=== PATIENT | female | born 1970 | race Caucasian/White ===

== ENCOUNTER 2021-02-07 09:32 | Outpatient (CLI) | payer OTHER, SELFPAY ==
[2021-02-07 10:12] LABS: CRP 0.7 mg/dL (<1.0); Uric Acid 4.7 mg/dL (2.5-7.5)
[2021-02-07 10:13] LABS: Rheumatoid Factor < 8.6 IU/ML (<12)
[2021-02-07 10:50] LABS: Erythrocyte Sedimentation Rate 9 mm/hr (0-20)
== END 2021-02-07 09:33 | disposition home or self-care (01) ==
PROVIDERS: Visit Provider Podiatrist Foot & Ankle Surgery
DX: M15.9 Polyosteoarthritis, unspecified (principal)
CPT/HCPCS: 36415; 84550; 85652; 86038; 86140; 86430

== ENCOUNTER → 2021-02-27 15:21 | Outpatient (CLI) | payer OTHER, SELFPAY ==
--- NOTE | ~2021-02-27 | MR_ITS ---
EXAMINATION: MR foot LT wo/w con DATE: 02/27/2021 17:35 INDICATION: Soft tissue mass at the first intermetatarsal space at the left foot TECHNIQUE: Magnetic resonance imaging (MRI) of the left fore/mid foot was performed without and with 12 mL Multihance intravenous contrast. Sequences included axial, sagittal and coronal T1-weighted FSE , axial and coronal T2-weighted FS FSE, sagittal fluid sensitive FSE STIR, axial [id number] FS FSE an d postcontrast axial, sagittal and coronal T1-weighted FS FSE. COMPARISON: None FINDINGS: Bone alignment is normal. No fracture. Mild to moderate osteoarthritis at the first metatarsophalange al joint with mild subarticular edema and small marginal osteophytes at the lateral side of the joint space. Synovitis and small joint effusion at the first metatarsophalangeal joint. Minimal to mild os teoarthritis at a few of the tarsal metatarsal and interphalangeal joints.. No cortical erosions or p athologic marrow replacing process. There is a 10 x 3 x 3 mm peripherally enhancing centrally fluid a ttenuation cystic fluid collection in the dorsal subcutaneous tissues between the bases of the first and second proximal phalanges which could represent either a ganglion cyst or intermetatarsal bursa w ith bursitis no solid enhancing nodules or masses. Specifically no Le's neuroma. The flexor and e xtensor tendons are normal. The Lisfranc ligament complex and collateral ligament complex at the meta tarsophalangeal and interphalangeal joints are normal. Intrinsic musculature of the foot is unremarka ble. IMPRESSION: 1. 10 x 3 x 3 mm cystic fluid collection at the first intermetatarsal space which could represent eit her a small ganglion cyst or intermetatarsal bursa with bursitis. 2. 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 Reviewed, dictated and finalized at location A. IMPRESSION: 1. 10 x 3 x 3 mm cystic fluid collection at the first intermetatarsal space whi ch could represent either a small ganglion cyst or intermetatarsal bursa with b ursitis. 2. Mild to moderate osteoarthritis at the first metatarsophalangeal joint with associated synovitis and small joint effusion.
[2021-02-27 16:22] LABS: Estimated Glomerular Filt Rate > 60
== END ==
PROVIDERS: Visit Provider Podiatrist Foot & Ankle Surgery
DX: M19.072 Primary osteoarthritis, left ankle and foot (principal)
CPT/HCPCS: 73720; A9577

== ENCOUNTER → 2021-03-01 14:36 | Outpatient (CLI) | payer OTHER, SELFPAY ==
--- NOTE | ~2021-03-01 | XR_ITS ---
XR hand RT min 3V, XR wrist RT w scaphoid 03/01/2021 15:42 Indication: Polyarthritis Procedure: 3 views right hand and 5 views right hand Comparison: No prior studies for comparison Findings: No fracture, subluxation or dislocation. No joint space narrowing. No erosive changes. No s oft tissue abnormality. No foreign bodies. Impression: 1: No significant bone or joint abnormality. Reviewed, dictated and finalized at location B. Impression: 1: No significant bone or joint abnormality. Impression: 1: No significant bone or joint abnormality.
--- NOTE | ~2021-03-01 | XR_ITS ---
XR ankle RT min 3V 03/01/2021 15:42 INDICATION: Polyarthritis PROCEDURE: 4 views right ankle COMPARISON: No prior studies for comparison. FINDINGS: Fracture, dislocation or subluxation is not identified. Ankle mortise intact. The soft tiss ues appear within normal limits. No foreign bodies are identified. IMPRESSION: 1: NO ACUTE BONE OR JOINT ABNORMALITY IDENTIFIED. Reviewed, dictated and finalized at location B.
--- NOTE | ~2021-03-01 | XR_ITS ---
XR hip BI wo pelvis 03/01/2021 15:42 Indication: Polyarthritis. Procedure: 2 views of each hip Comparison: No prior studies for comparison. Findings: Pelvic rings are intact. Sacral foramen are symmetric. No fracture, subluxation or dislocat ion. No joint space narrowing. No erosive changes. Impression: 1: No significant bone or joint abnormality. Reviewed, dictated and finalized at location B. Impression: 1: No significant bone or joint abnormality.
== END ==
PROVIDERS: Visit Provider Clinical Nurse Specialist
DX: M13.0 Polyarthritis, unspecified (principal)
CPT/HCPCS: 73110; 73130; 73521; 73610

== ENCOUNTER 2021-03-16 01:23 | Day surgery (SDC) | payer OTHER, SELFPAY ==
[2021-03-13 09:00] VITALS: BMI 20.7
--- NOTE | 2021-03-16 07:12 | WPDHPUPDATE1 ---
History and Physical Update Update Date/Time: 03/16/21 07:12 History and Physical has been reviewed, including an updated exam of the patient. There are NO changes in the patient's condition. Risks, benefits, and alternatives have been discussed and questions answered. Patient agrees to proceed with procedure.
[2021-03-16 08:29] VITALS: BP 105/64; PULSE 69; RESP 16; TEMP 37.2; O2SAT 100
[2021-03-16] MEDS: LACTATED RINGERS 1,000 ML 30 ML IV CONT (08:47)
--- NOTE | 2021-03-16 09:03 | WPDANESEPPF ---
Anes - Initial Pre Proc Eval Procedure: Operation Date: 03/16/21 10:00 Proposed Procedures p Excision Of Ganglion Cyst, Left Foot - Tj Rashid JR, MD Date/Time: 03/16/21 09:03 Surgeon: Tj Rashid JR, MD Pre Op Diagnosis: Ganglion cyst, left foot Patient Data Age: 50 Gender: F Height: 1.73 m Weight: 65 kg Last Vital Signs Temp 98.9 F 03/16/21 08:29 Pulse 69 03/16/21 08:29 Resp 16 03/16/21 08:29 BP 105/64 03/16/21 08:29 Pulse Ox 100 03/16/21 08:29 Allergies Allergy/AdvReac Type Severity Reaction Status Date / Time No Known Allergies Allergy Verified 03/13/21 08:41 Home Medications Medication Instructions Recorded Confirmed Type cholecalciferol (vitamin D3) 10 10 mcg PO DAILY 03/01/21 03/16/21 History mcg (400 unit) capsule citalopram 10 mg tablet 10 mg PO DAILY 03/01/21 03/16/21 History mecobalamin (vitamin B12) 5,000 5,000 mcg PO DAILY 03/01/21 03/16/21 History mcg disintegrating tablet omega-3 fatty acids 1,000 mg 1,000 mg PO DAILY 03/01/21 03/16/21 History capsule trazodone 50 mg PO HS 03/13/21 03/16/21 History Patient hx anesthesia problems: none Family hx anesthesia problems: none PMFSH Past Medical History Medical History (Updated 03/01/21 @ 14:42 by HARRY German) Anxiety FH: cholecystectomy Family History Family History (Updated 03/01/21 @ 13:30 by Ivonne Ramirez CMA) Mother Heart disease Grandparent Cancer Depression Anxiety Heart disease Cerebrovascular accident Social History Social History (Updated 03/01/21 @ 13:45 by Ivonne Ramirez CMA) Smoking packs per day: 0.5 Smoking cigarettes per day: 10.0 Years smoked: 10 Smoking pack-years: 5.00 Smoking status: Former smoker Tobacco type: cigarettes Second hand tobacco smoke exposure: No Smoking end date: 09/08/99 Alcohol intake: current Drinks per week: 2 Substance use: never Living arrangements: with family Spiritual care concerns: No Anes - Eval Final PreProcedure Day of Procedure 03/16/21 09:03 Patient weight: normal Heart: regular rate and rhythm Lungs: clear to auscultation Airway: Mallampati scale class II Neurological: alert and oriented Last oral intake: >/= 8 hours ASA classification: II Emergent: no Anesthetic plan: proceed Anesthesia type and monitoring: general GIVS and standard monitoring Informed Consent: The patient's anesthetic plan and its attendant risks and benefits were discussed with the patient/family/POA. Questions were solicited and answers provided to the satisfaction of the patient/family/POA.
[2021-03-16] MEDS: ceFAZolin 2 GM/D5W 50 ML 2 GM/50 ML BAG IVPB (10:13)
[2021-03-16] MEDS: BUPIVACAINE HCL 0.5% PF 30 ML VIAL INFILTRATE (10:19)
--- NOTE | 2021-03-16 10:54 | P.OP_ITS ---
Procedure Note - Detailed Date of Procedure 03/16/21 Pre-op Diagnosis Ganglion cyst, left foot Post-op Diagnosis same Procedure Performed Excision of ganglion cyst left foot Surgeon Tj Rashid JR, DPM Anesthesia MAC and local Description of Procedure PROCEDURE IN DETAIL: Under mild sedation, the patient was brought into the operating room, placed on the operating table in the supine position. A pneumatic ankle tourniquet was placed about the patient's ankle. Following IV anesthesia, a local anesthetic block was obtained about the foot and ankle utilizing 20 cc of a 1:1 of 2% Lidocaine plain and 0.5% Marcaine plain. The foot was then scrubbed, prepped, and draped in the usual aseptic manner. An Esmarch bandage was then used to exsanguinate the patient's foot and the pneumatic ankle tourniquet was then inflated. Surgery began in the following manner: Attention was directed to the first i ntermetatarsal space of the left foot where an ancision was made along the central metatarsal extending to the base of the proximal phalanx of the hallux and 2nd digit. The incision was continued deep down through the subcutaneous tissues using sharp and blunt dissection. All bleeders were cauterized as necessary. At this point, the dissection was continued down to the subcutaneus fay layer where the cystic well encapsulated mass was visualized, the mass was extruding viscous clear jelly like material. The stalk was noted to be arising from the medial capsule of the first metatarsal phalangeal joint. The entire mass was excised along with the tethered lipomatous tissue and sent for gross and histopathology. I used electrocautery to cauterize the stalk at the medial capsule of the first metatarsal phalangeal joint. No remnants of the cyst were noted, I did protect the neurovascular structures. The operative site was flushed with copious amount of sterile saline. Finally, the subcutaneous structures were reapproximated with 4-0 Vicryl. Next, the skin was reapproximated and coapted utilizing 4-0 Monocryl in running subcuticular suture fashion technique. Upon completion of the procedure, the incision was dressed with Steri-Strips, Adaptic, 4x4s, Kerlix, and Coban. The pneumatic ankle tourniquet was then deflated and a prompt hyperemic response was noted to all digits of the foot. A surgical shoe was then applied to the affected lower extremity. It is important to note that Dr. Rashid was present throughout the procedure. The patient did very well with the procedure and the anesthesia. The patient was transferred to the recovery room with vital signs stable and vascular status intact to all toes of the foot. Following a period of postoperative monitoring, the patient will be discharged home on the following written and oral postoperative instructions: 1. Keep the dressing clean, dry, and intact. 2. The patient to be protected weight bearing with a surgical shoe. 3. The patient should ice and elevate the affected foot when at rest. 4. The patient should contact Dr. Rashid for all postop care and if any problems should arise. The patient will follow up in one week for the post op visit. 5. Prescriptions were written for Percocet 5/325, dispensed 40 to be taken 1 p.o. q.4-6 hours as needed for severe pain. Furthermore, the patient should take Aspirin 325 once daily for two weeks to prevent DVT.
[2021-03-16 10:55] VITALS: BP 92/50; PULSE 72; RESP 12; O2SAT 98
[2021-03-16 11:20] VITALS: BP 101/58; PULSE 59; RESP 14
[2021-03-16 11:55] VITALS: BP 120/72; PULSE 56; RESP 14
--- NOTE | 2021-03-16 12:13 | SUR.PHASEII ---
PT AWAKE AND ALERT. DENIES PAIN OR NAUSEA. READY TO GO HOME. MEETS DISCHARGE CRITERIA.
[2021-03-16 12:20] VITALS: BP 107/55; PULSE 60; RESP 16
== END 2021-03-16 12:30 | disposition home or self-care (01) ==
PROVIDERS: Visit Provider Podiatrist Foot & Ankle Surgery
PROC: (CPT 28090; principal; 2021-03-16 10:00)
DX: M67.472 Ganglion, left ankle and foot (principal); F41.9 Anxiety disorder, unspecified; Z87.891 Personal history of nicotine dependence; K91.5 Postcholecystectomy syndrome
CPT/HCPCS: 28090; 88304; J0690; J2250; J2405; J2704; J3010; J7120

== ENCOUNTER 2022-08-22 10:10 | Outpatient (CLI) | payer BC, SELFPAY ==
[2022-08-22 20:37] LABS: Kit Draw Collected
== END 2022-08-22 10:11 | disposition home or self-care (01) ==
LOC: ANHGOSHLAB 10:11
PROVIDERS: PCP Internal Medicine; Visit Provider Clinical Nurse Specialist
DX: R23.3 Spontaneous ecchymoses (principal); F41.9 Anxiety disorder, unspecified
CPT/HCPCS: 36415

== ENCOUNTER 2022-09-27 01:45 | Day surgery (SDC) | payer BC, SELFPAY ==
[2022-09-06 10:14] VITALS: BMI 20.4
--- NOTE | 2022-09-13 08:43 | PC.NURSE ---
Patient arrived to GI lab this morning 09/13/22 stating she was here for her procedure. Patient had been canceled by the office due to lack of pre approval for insurance per Kat. Patient states she did not get any phone calls from the office. I called the office and their notes state they left her a voicemail at 1302 on 09/12/22. Patient denies any voicemail being left. Instructed to follow up with office for pre approval and to be put back on the schedule.
[2022-09-27 07:17] VITALS: BP 97/65; PULSE 73; RESP 18; TEMP 36.4; O2SAT 100; BMI 21.1
[2022-09-27] MEDS: LACTATED RINGERS 1,000 ML 150 ML IV CONT (07:27)
--- NOTE | 2022-09-27 07:46 | PM.HPGS ---
History of Present Illness History of Present Illness Consent: Risks, benefits, and alternatives have been discussed and questions answered. Patient agrees to proceed with procedure. Chief complaint: GERD Narrative: Esthela Quiroz is a 52 year old female Presents for EGD. Patient has a longstanding history of acid reflux disease. Currently maintained on omeprazole 20mg p.o. daily. Typically this is well controlled however several weeks ago had an experience with substernal epigastric pain lasted all night was rather intense. This has not recurred. Patient denies any dysphagia bleeding or weight loss. Patient referred today for EGD because of chronic GE reflux disease. Review of Systems Review of Systems: Review of systems noncontributory. [facility] Past Medical History Medical History (Updated 08/22/22 @ 12:58 by HARRY German) Anxiety Cough FH: cholecystectomy Left foot pain Polyarticular arthritis Right hip pain Screening for endocrine disorder Screening for lipid disorders Vitamin D deficiency Wrist pain Family History Family History Mother Heart disease Grandparent Cancer Depression Anxiety Heart disease Cerebrovascular accident Social History Social History (Updated 08/22/22 @ 09:21 by Cindy Lopez MA) Smoking packs per day: 0.25 Smoking cigarettes per day: 5.0 Years smoked: 15 Smoking pack-years: 3.75 Smoking status: Former smoker Tobacco type: cigarettes Second hand tobacco smoke exposure: No Smoking end date: 09/08/99 Alcohol intake: current Drinks per week: 2 Substance use: never Substance use type: does not use Lack of Transportation: No Lack of Food: Never True Current Housing: I Have Housing Concerned About Future Housing: No Difficulty Paying Gas/Electric Bills: No Difficulty Paying for Meds: No Currently Unemployed: No Education: Bachelor's Degree Difficulty w/ Childcare or Family Care: No Living arrangements: with family Spiritual care concerns: No Meds Home Medications and Allergies Home Medications Medication Instructions Recorded Confirmed Type omega-3 fatty acids 1,000 mg 1,000 mg PO DAILY 03/01/21 09/18/22 History capsule (Fish Oil Concentrate) citalopram 10 mg tablet See Rx Instructions .Route 06/27/22 09/18/22 Rx .COMPLEX #90 tabs omeprazole 20 mg capsule,delayed See Rx Instructions .Route 06/27/22 09/18/22 Rx release .COMPLEX #90 caps alprazolam 0.25 mg tablet (Xanax) 0.25 mg PO DAILY PRN anxiety #20 08/20/22 09/18/22 Rx tabs fluticasone propionate 50 See Rx Instructions .Route 09/06/22 09/18/22 History mcg/actuation nasal .COMPLEX PRN Allergy Symptoms spray,suspension trazodone 100 mg tablet 100 mg PO QHS PRN Insomnia 09/06/22 09/18/22 History Allergies Allergy/AdvReac Type Severity Reaction Status Date / Time No Known Allergies Allergy Verified 09/18/22 08:20 Vital Signs Vital Signs - 24 hr 09/27/22 07:17 Temperature 97.5 F L Pulse Rate 73 Respiratory Rate 18 Blood Pressure 97/65 L Pulse Oximetry 100 Oxygen Delivery Room Air Exam Narrative: Physical exam reveals patient to be alert. Vital signs stable. HEENT exam is unremarkable. Patient is anicteric. Lungs are clear to auscultation and percussion. Heart is without murmur or extra sounds. Abdomen bowel sounds are present soft nontender with no organomegaly. Digital external rectal exam deferred at this time. Assessment and Plan Assessment and plan (1) GERD (gastroesophageal reflux disease): Qualifiers: Esophagitis presence: without esophagitis Qualified Code(s): K21.9 - Gastro-esophageal reflux disease without esophagitis Code(s): K21.9 - Gastro-esophageal reflux disease without esophagitis Status: Acute Assessment and Plan: Patient with chronic GE reflux disease. Currently maintained on omeprazole
--- NOTE | 2022-09-27 07:55 | WPDANESEPPF ---
Anes - Initial Pre Proc Eval Procedure: Operation Date: 09/27/22 08:00 Proposed Procedures p Esophagogastroduodenoscopy - Julio Hunter MD Date/Time: 09/27/22 07:55 Surgeon: Julio Hunter MD Pre Op Diagnosis: GERD Patient Data Age: 52 Gender: F Height: 1.73 m Weight: 63.1 kg Last Vital Signs Temp 97.5 F L 09/27/22 07:17 Pulse 73 09/27/22 07:17 Resp 18 09/27/22 07:17 BP 97/65 L 09/27/22 07:17 Pulse Ox 100 09/27/22 07:17 O2 Del Method Room Air 09/27/22 07:17 Allergies Allergy/AdvReac Type Severity Reaction Status Date / Time No Known Allergies Allergy Verified 09/18/22 08:20 Home Medications Medication Instructions Recorded Confirmed Type omega-3 fatty acids 1,000 mg 1,000 mg PO DAILY 03/01/21 09/18/22 History capsule (Fish Oil Concentrate) citalopram 10 mg tablet See Rx Instructions .Route 06/27/22 09/18/22 Rx .COMPLEX #90 tabs omeprazole 20 mg capsule,delayed See Rx Instructions .Route 06/27/22 09/18/22 Rx release .COMPLEX #90 caps alprazolam 0.25 mg tablet (Xanax) 0.25 mg PO DAILY PRN anxiety #20 08/20/22 09/18/22 Rx tabs fluticasone propionate 50 See Rx Instructions .Route 09/06/22 09/18/22 History mcg/actuation nasal .COMPLEX PRN Allergy Symptoms spray,suspension trazodone 100 mg tablet 100 mg PO QHS PRN Insomnia 09/06/22 09/18/22 History Patient hx anesthesia problems: none Family hx anesthesia problems: none Results Review: All pre-operative results and documents have been reviewed as part of the pre-operative evaluation. [facility] Past Medical History Medical History (Updated 08/22/22 @ 12:58 by HARRY German) Anxiety Cough FH: cholecystectomy Left foot pain Polyarticular arthritis Right hip pain Screening for endocrine disorder Screening for lipid disorders Vitamin D deficiency Wrist pain Family History Family History Mother Heart disease Grandparent Cancer Depression Anxiety Heart disease Cerebrovascular accident Social History Social History (Updated 08/22/22 @ 09:21 by Cindy Lopez MA) Smoking packs per day: 0.25 Smoking cigarettes per day: 5.0 Years smoked: 15 Smoking pack-years: 3.75 Smoking status: Former smoker Tobacco type: cigarettes Second hand tobacco smoke exposure: No Smoking end date: 09/08/99 Alcohol intake: current Drinks per week: 2 Substance use: never Substance use type: does not use Lack of Transportation: No Lack of Food: Never True Current Housing: I Have Housing Concerned About Future Housing: No Difficulty Paying Gas/Electric Bills: No Difficulty Paying for Meds: No Currently Unemployed: No Education: Bachelor's Degree Difficulty w/ Childcare or Family Care: No Living arrangements: with family Spiritual care concerns: No Anes - Eval Final PreProcedure Day of Procedure 09/27/22 07:55 Patient weight: normal Heart: regular rate and rhythm Lungs: clear to auscultation Airway: Mallampati scale class II Neurological: alert and oriented Last oral intake: >/= 8 hours ASA classification: II Emergent: no Anesthetic plan: proceed Anesthesia type and monitoring: general GIVS and standard monitoring Results Review: All pre-operative results and documents have been reviewed as part of the pre-operative evaluation. Informed Consent: The patient's anesthetic plan and its attendant risks and benefits were discussed with the patient/family/POA. Questions were solicited and answers provided to the satisfaction of the patient/family/POA.
[2022-09-27 08:06] VITALS: BP 106/64; PULSE 78; RESP 20; O2SAT 98
[2022-09-27 08:16] VITALS: BP 102/60; PULSE 77; RESP 19; O2SAT 99
[2022-09-27 08:26] VITALS: BP 107/71; PULSE 72; RESP 14; O2SAT 100
== END 2022-09-27 08:29 | disposition home or self-care (01) ==
PROVIDERS: PCP Internal Medicine; Visit Provider Internal Medicine Gastroenterology
PROC: 0DJ08ZZ Inspection of Upper Intestinal Tract, Via Natural or Artificial Opening Endoscopic (ICD-10-PCS; CPT 43235; principal; 2022-09-27 08:00)
DX: K21.9 Gastro-esophageal reflux disease without esophagitis (principal); F41.9 Anxiety disorder, unspecified; Z87.891 Personal history of nicotine dependence
CPT/HCPCS: 43239; 87081; J2704; J7120

== ENCOUNTER 2022-11-14 12:47 | Outpatient (CLI) | payer BC, SELFPAY ==
[2022-11-18 04:58] LABS: Thyroid Peroxidase Antibodies <1 IU/mL (<9)
== END 2022-11-14 12:48 | disposition home or self-care (01) ==
LOC: ANHGOSHLAB 12:47
PROVIDERS: PCP Internal Medicine; Visit Provider Clinical Nurse Specialist
DX: R79.89 Other specified abnormal findings of blood chemistry (principal)
CPT/HCPCS: 36415; 86376

== ENCOUNTER → 2022-12-03 12:16 | Outpatient (CLI) | payer BC, SELFPAY ==
--- NOTE | ~2022-12-03 | MR_ITS ---
EXAMINATION: MR brain/brain stem wo/w con DATE: 12/03/2022 13:03 INDICATION: Memory loss. Migraine headache. TECHNIQUE: Magnetic resonance imaging (MRI) of the brain and brainstem was performed without and with 12 mL MultiHance intravenous contrast. COMPARISON: None. FINDINGS: There is no intracranial hemorrhage, acute infarction, or abnormal intracranial mass lesion . The ventricles are normal in size. There is mild mucosal thickening in the paranasal sinuses. The o rbits are normal. The mastoid air cells are normal. IMPRESSION: 1. Normal brain. Reviewed, dictated and finalized at location A. IMPRESSION: 1. Normal brain.
== END ==
PROVIDERS: PCP Internal Medicine; Visit Provider Clinical Nurse Specialist
DX: R41.3 Other amnesia (principal); G43.909 Migraine, unspecified, not intractable, without status migrainosus
CPT/HCPCS: 70553; A9577

== ENCOUNTER → 2023-09-12 08:09 | Outpatient (CLI) | payer BC, SELFPAY ==
--- NOTE | ~2023-09-12 | MR_ITS ---
MRI of the right shoulder Technique: Axial proton-density fat-sat images, coronal proton density fat-sat and T2 fat-sat images, and sagittal T1-weighted and T2 fat-sat images were acquired. Clinical History: Supraspinatus tendinitis Findings: There is moderate AC joint degenerative change. Coracoclavicular, coracoacromial, and corac ohumeral ligaments are intact. Supraspinatus and infraspinatus tendons are intact, without partial or full-thickness tear. There is minimal tendinosis. Subscapularis tendon is intact, with minimal tendinosis. Tendon of long head of t he biceps is intact. No definite labral tear identified. Inferior glenohumeral ligament is intact. No effusion or degenerative change of the glenohumeral join t. No significant fluid distention of the subacromial/subdeltoid bursa. No muscle atrophy or edema. Impression: Minimal rotator cuff tendinosis. Moderate AC joint degenerative change. Reviewed, dictated and finalized at location . [facility] [employer] Impression: Minimal rotator cuff tendinosis. Moderate AC joint degenerative change.
== END ==
PROVIDERS: PCP Internal Medicine; Visit Provider Physician Assistant
DX: M75.91 Shoulder lesion, unspecified, right shoulder (principal)
CPT/HCPCS: 73221